=== PATIENT | male | born 1985 | race Caucasian/White ===

== ENCOUNTER 2018-08-23 18:56 | Emergency (ER) | payer OTHER ==
[2018-08-23 19:12] VITALS: BP 125/82; PULSE 86; TEMP 98.1; BMI 34.8
--- NOTE | 2018-08-23 19:34 | PDOC ---
Documentation entered by Rachna Taylor SCRIBE, acting as scribe for Yomaira Ellis MD. Yomaira Ellis MD: This documentation has been prepared by the Brandon henry Brenda, SCRIBE, under my direction and personally reviewed by me in its entirety. I confirm that the documentation accurately reflects all work , treatment, procedures, and medical decision making performed by me. History of Present Illness - General Chief Complaint: Respiratory Stated Complaint: SORE THROAT, SOB History Source: Patient Exam Limitations: No Limitations - History of Present Illness Initial Comments: 08/23/18 19:31 Assessment and plan: This is a 33-year-old male who had several days of multiple episodes of nausea and vomiting approximately 3-4 days ago. Post the episodes patient has complained of a sore throat and some shortness of breath. However patient is getting better. Patient did go to an urgent care center was started on prednisone and given an inhaler and he said his symptoms have been improving. Patient was reassured that everything was improving and he should just give it more time and follow-up with an ENT if not improved by the end of the week. The patient is a 33 year old male, with a significant no PMH who presents to the emergency department with several days of multiple episodes of nausea and vomiting about 3-4 days ago. The patient reports going to urgent care on Thursday (08/20/18) due to episodes of vomiting and diaphoresis on night, where he was prescribed prednisone. The patient reports not feeling better since thursday, and has been experiencing throat pain accompanied with shortness of breath. The patient also notes a subjective fever on Thursday. (08/20/18) The patient denies chest pain,headache and dizziness. Denies diarrhea and constipation. Allergies: As per nursing notes Past medical history: no significant history Past surgical history: no significant history Social history: Not reported Family History: no pertinent history Medications: As reviewed PCP: none General: +Diaphoresis + Subjective fever. No weakness, no weight loss. HEENT: +Sore Throat. No change in vision. No ear pain CardioVascular: +Shortness of breath. No chest pain Respiratory: No cough, or wheezing. Gastrointestinal: + Nausea + Vomiting. No diarrhea or constipation. No rectal bleeding Musculoskeletal: No joint or muscle pain or swelling Neurologic: No headache, vertigo, dizziness or loss of consciousness Psychiatric: no depression Skin: No rashes or easy bruising Endocrine: no increased thirst or abnormal weight change Allergic: no skin or latex allergy All other systems reviewed and normal General: Well-nourished well-developed individual, no acute distress HEENT:+Mild erythema in Posterior oropharynx +Mild erythema in the bilateral nasal posterior turbinates Throat: tonsils normal. No exudate Neck: Supple, no meningeal signs, no lymphadenopathy Eyes::Pupils equal reactive and round, extraocular motion intact Chest: Nontender to palpation Cardiac: S1-S2 normal, regular rate and rhythm, no murmurs rubs or gallops Respiratory: Lungs clear to auscultation bilateral Extremities: Warm, dry, no cyanosis, clubbing, or edema Skin: No rashes Neuro: Alert and oriented x3, nonfocal exam, grossly intact, normal gait Psych: Normal mood and affect 08/23/18 19:44 Past History - Past Medical History Allergies/Adverse Reactions: Allergies Allergy/AdvReac Type Severity Reaction Status Date / Time No Known Allergies Allergy Verified 08/23/18 18:58 Home Medications: Ambulatory Orders Albuterol Sulfate Inhaler - [Ventolin Hfa Inhaler -] 2 inh PO Q6H PRN 08/23/18 Prednisone [Deltasone] 40 mg PO DAILY 08/23/18 *Physical Exam - Vital Signs Last Vital Signs Temp Pulse Resp BP Pulse Ox 98.1 F 86 18 125/82 98 08/23/18 18:56 08/23/18 18:56 08/23/18 18:56 08/23/18 18:56 08/23/18 18:56 *DC/Admit/Observation/Transfer Diagnosis at time of Disposition: Pharyngitis Qualifiers: Pharyngitis/tonsillitis etiology: unspecified etiology Qualified Code(s): J02.9 - Acute pharyngitis, unspecified - Discharge Dispostion Disposition: HOME Condition at time of disposition: Stable Decision to Admit order: No - Referrals Referrals: Stephen Larios MD [Staff Physician] - - Patient Instructions Additional Instructions: Take Tylenol or Motrin as needed for pain or fevers, Continue the prednisone until it is finished, It is okay to use the Flonase, Follow-up with Dr. Larios if not improved by the end of the week Return to the emergency department immediately with ANY new, persistent or worsening symptoms. Continue any medications as previously prescribed by your physician. You should follow up with your primary doctor as soon as possible regarding today's emergency department visit. . Please make sure your doctor reviews the results of your emergency evaluation. Thank you for coming to the Emergency Department today for your care. It was a pleasure to see you today. Please note that your evaluation is INCOMPLETE until you follow-up with your doctor. - Post Discharge Activity
[2018-08-23] MEDS ORDERED: IBUPROFEN 400 MG TABLET (FP) PO ONE ×2 (19:36→19:37)
== END 2018-08-23 19:55 | disposition home or self-care (01) ==
LOC: FER 18:56
DX: J02.9 Acute pharyngitis, unspecified (principal)
CPT/HCPCS: 99283-25

== ENCOUNTER 2020-04-28 22:56 | Emergency (ER) | payer SELFPAY ==
[2020-04-28] MEDS ORDERED: FLUORESCEIN NA 1 EA STRIP ONE (23:04)
[2020-04-28] MEDS ORDERED: TETRACAINE 0.5% OPHTH SOLN 2 ML BOTTLE ONE (23:04)
[2020-04-28] MEDS ORDERED: ERYTHROMYCIN 0.5% OPHTHALMIC OINTMENT 3.5 GM TUBE OD ONE (23:12)
[2020-04-28] MEDS ORDERED: ERYTHROMYCIN 0.5% OPHTHALMIC OINTMENT 3.5 GM TUBE ONE (23:12)
[2020-04-28 23:15] VITALS: BP 139/89; PULSE 93; TEMP 98.7; BMI 35.0
== END 2020-04-28 23:25 | disposition home or self-care (01) ==
LOC: FER 22:56
DX: S05.01XA Injury of conjunctiva and corneal abrasion without foreign body, right eye, initial encounter (principal); H57.9 Unspecified disorder of eye and adnexa
CPT/HCPCS: 99284-25

== ENCOUNTER 2021-09-25 18:45 | Observation (INO) | payer OTHER ==
[2021-09-25 19:22] LABS: HEMATOCRIT 45.6 % (35.4-49); HEMOGLOBIN 15.9 G/dL (11.7-16.9); MCH 30.1 pg (25.7-33.7); MCHC 34.9 g/dl (32.0-35.9); MEAN PLT VOLUME 7.7 fl (7.5-11.1); PLATELET COUNT 300.1 10^3/uL (134-434); RDW 14.1 % (11.9-15.9); WHITE BLOOD COUNT 12.9 10^3/uL (4.0-10.8)
[2021-09-25 19:30] LABS: INR 1.04 (0.83-1.09)
[2021-09-25 19:38] LABS: BILIRUBIN,TOTAL 0.5 mg/dl (0.2-1); CALCIUM 9.6 mg/dl (8.5-10); CREATININE 0.8 mg/dl (0.55-1.3); TOT PROT 7.5 g/dl (6.4-8.2)
[2021-09-25 19:58] LABS: PLATELET ESTIMATE ADEQUATE
[2021-09-25] MEDS ORDERED: dilTIAZem HCL 30 MG TABLET PO ONE (19:59)
[2021-09-25] MEDS ORDERED: dilTIAZem HCL 30 MG TABLET ONE (20:03)
[2021-09-25] MEDS ORDERED: ACETAMINOPHEN 325 MG TABLET (FP) PO PRN (22:56)
[2021-09-25] MEDS ORDERED: POLYETHYLENE GLYCOL (HEALTHYLAX) 3350 17 GM PACKET PO PRN (22:56)
[2021-09-26 00:51] VITALS: BMI 34.7
[2021-09-26 07:44] LABS: HEMATOCRIT 43.7 % (35.4-49); HEMOGLOBIN 15.5 G/dL (11.7-16.9); MCH 30.1 pg (25.7-33.7); MCHC 35.4 g/dl (32.0-35.9); MEAN PLT VOLUME 7.7 fl (7.5-11.1); PLATELET COUNT 301.8 10^3/uL (134-434); RBC 5.14 10^6/uL (4.00-5.60); RDW 14.2 % (11.9-15.9); WHITE BLOOD COUNT 11.5 10^3/uL (4.0-10.8)
[2021-09-26 08:09] LABS: CALCIUM 8.9 mg/dl (8.5-10); CREATININE 0.7 mg/dl (0.55-1.3); PHOSPHOROUS 4.4 mg/dl (2.5-4.9)
[2021-09-26 08:44] LABS: CHOLESTEROL 152 mg/dl (50-200); HDL CHOLESTEROL 38 mg/dl (40-60); LDL CHOLESTEROL (ONLY DFH) 96 mg/dl (5-100); TRIGLYCERIDES 90 mg/dl (0-150)
[2021-09-26] MEDS ORDERED: ENOXAPARIN NA (PORCINE) 40 MG/0.4 ML DISP.SYRIN SQ SCH (10:00)
[2021-09-26 11:09] LABS: N-TERMINAL BNP 685.9 pg/ml (5-125)
[2021-09-26] MEDS ORDERED: dilTIAZem HCL 30 MG TABLET PO SCH (12:00)
[2021-09-26 12:10] VITALS: RESP 18
[2021-09-26 14:08] VITALS: BP 102/64; PULSE 80; TEMP 98.9
== END 2021-09-26 16:03 | disposition left against medical advice (07) ==
LOC: FER 18:45 → FM/S 23:15 → UNDOADMOB 23:19
PROVIDERS: ADMIT Internal Medicine
PROC: 3E023GC Introduction of Other Therapeutic Substance into Muscle, Percutaneous Approach (ICD-10-PCS; principal; 2021-09-25)
DX: I48.91 Unspecified atrial fibrillation (principal); F17.210 Nicotine dependence, cigarettes, uncomplicated; E66.9 Obesity, unspecified; Z68.34 Body mass index [BMI] 34.0-34.9, adult; D72.89 Other specified disorders of white blood cells
CPT/HCPCS: 36415; 71045-TC-FY; 80048; 80053; 80061; 83036; 83735; 83880; 84100; 84439; 84443; 84484; 85027; 85610; 85730; 93005; 93306-TC; 99285-25; C9803-CS; G0378; U0003; U0005